=== PATIENT | female | born 1945 | race Caucasian/White ===

== ENCOUNTER 2017-10-26 13:28 | Observation (INO) | payer MEDICARE, MEDICAID ==
[2017-10-23 12:50] LABS: BASOPHILS % (AUTO) 0.5 % (0-1); EOSINOPHILS # (AUTO) 0.1 X10'3 (0-0.9); EOSINOPHILS % (AUTO) 2.3 % (0-6); HEMATOCRIT 32.7 % (35.0-45.0); HEMOGLOBIN 10.6 g/dl (12.0-16.0); LYMPHOCYTES % (AUTO) 23.2 % (21-51); MEAN CORPUSCULAR HEMOGLOBIN 30.4 PG (27.0-31.0); MEAN CORPUSCULAR HGB CONC 32.3 % (33.0-36.5); MEAN CORPUSCULAR VOLUME 94.1 FL (78-98); MEAN PLATELET VOLUME 8.1 FL (7.4-10.4); MONOCYTES # (AUTO) 0.6 X10'3 (0-0.9); MONOCYTES % (AUTO) 13.6 % (2-12); NEUTROPHILS # (AUTO) 2.5 X10'3 (1.8-7.7); NEUTROPHILS % (AUTO) 60.4 % (42-75); PLATELET COUNT 201 X10'3 (140-440); RED BLOOD COUNT 3.48 X10'6 (4.20-5.60); RED CELL DISTRIBUTION WIDTH 26.3 % (11.5-14.5); WHITE BLOOD COUNT 4.1 X10'3 (4.5-11.0)
[2017-10-23 13:00] LABS: INR 1.2 INR; PARTIAL THROMBOPLASTIN TIME 32 SECONDS (22-32); PROTHROMBIN TIME 12.2 SECONDS (9.0-12.0)
[2017-10-23 13:03] LABS: ALBUMIN 2.7 G/DL (3.4-5.0); ANION GAP 5 (8-16); BLOOD UREA NITROGEN 22 MG/DL (7-18); BUN/CREATININE RATIO 7.1 (6.6-38.0); CALCIUM 8.5 MG/DL (8.5-10.1); CHLORIDE 101 MMOL/L (99-107); CREATININE 3.09 MG/DL (0.40-0.90); GLUCOSE 113 MG/DL (70-104); POTASSIUM 4.3 MMOL/L (3.5-5.1); SODIUM 138 MMOL/L (135-145); TOTAL CARBON DIOXIDE 31.7 MMOL/L (24-32); eGFR 15 ML/MIN
[2017-10-26] VITALS (9 sets, daily range): BP systolic 120–155; BP diastolic 84–100
[~2017-10-26] VITALS: Ht 167.6 cm; Wt 56.2 kg
[~2017-10-26 13:28] MED LIST: AMIO200T40 PO; ASPI-1265 PO; ATOR40TA PO; BENA10TA74 PO; CARV-50 PO; CLOP75TA35 PO; DIGO125T PO; FLO44IN; HYDR1TAB PO; ISOS30TA9 PO; LEVO100T46 PO; LEVO50TA67 PO; LORA-512 PO; NITR0.4T51 SL; NOR5T PO
[2017-10-26] MEDS ORDERED: diphenhydrAMINE 25mg capsule PO PRN (13:45)
[2017-10-26] MEDS ORDERED: LORazepam 0.5 MG tablet PO PRN (13:45)
[2017-10-26] MEDS: normal saline 1000ml 1,000 ML IV SCH ×2 (14:27→18:39)
[2017-10-26] MEDS ORDERED: IPRA3AMP9 IH (14:53)
[2017-10-26] MEDS ORDERED: CALC667T5 PO (14:53)
[2017-10-26] MEDS ORDERED: TIOT18CA3 PO (14:53)
[2017-10-26] MEDS ORDERED: SEVE800T8 PO (14:53)
[2017-10-26] MEDS ORDERED: RANO500T3 PO (14:53)
[2017-10-26] MEDS ORDERED: FURO-150 PO (14:53)
[2017-10-26] MEDS ORDERED: HYDR-3965 PO (14:53)
[2017-10-26] MEDS ORDERED: LORA1TAB PO (14:53)
[2017-10-26] MEDS ORDERED: APIX2.5T PO (14:53)
[2017-10-26] MEDS ORDERED: iohexol 350MG/ML 100ml bottle IV ONE ×2 (16:43→17:34)
[2017-10-26] MEDS ORDERED: heparin 1,000unit/ml 10ml vial 10 ML ONE (16:43)
[2017-10-26] MEDS ORDERED: LIDOcaine 1% w/EPI 1:100,000 30ml vial (MDV) ONE (16:43)
[2017-10-26] MEDS ORDERED: fentaNYL/PF 50MCG/1 ML 2ML syringe ONE (17:07)
[2017-10-26] MEDS ORDERED: proCHLORperazine 10 MG/2 ml inj IV PRN (18:15)
[2017-10-26] MEDS ORDERED: ondansetron/PF 4mg/2ml inj IV PRN (18:15)
[2017-10-26] MEDS ORDERED: HYDROcodone/acetaminophen 10/325mg tab PO PRN (18:15)
[2017-10-26] MEDS ORDERED: OXAZEpam 15mg capsule PO PRN (18:15)
[2017-10-26] MEDS: HYDROcodone/acetaminophen 5mg/325mg tablet PO PRN (18:37)
[2017-10-26] MEDS ORDERED: LORazepam 1 MG tablet PO PRN (19:30)
[2017-10-26] MEDS ORDERED: nitroGLYCERIN 0.4mg SUBLingual tab SL PRN (19:30)
[2017-10-26] MEDS ORDERED: levoTHYROXINE 25mcg tablet PO SCH (19:30)
[2017-10-26] MEDS: ipratropium 0.5 MG/2.5ML nebule IH SCH (20:42)
[2017-10-26] MEDS ORDERED: HYDROcodone/acetaminophen 5mg/325mg tablet PO SCH (21:00)
[2017-10-26] MEDS: carvedilol 6.25mg tablet PO SCH (21:05)
[2017-10-26] MEDS: ranolazine 500mg SR tablet (Q12H) PO SCH (21:05)
[2017-10-26] MEDS: furosemide 20MG tablet PO SCH (21:05)
[2017-10-26] MEDS: atorvastatin 20mg tablet PO SCH (21:05)
[2017-10-27] MEDS ORDERED: CALCIUM ACETATE PO SCH
[2017-10-27] MEDS: ipratropium 0.5 MG/2.5ML nebule IH SCH ×4 (02:47→20:08)
[2017-10-27 03:00] VITALS: BP 147/99
[2017-10-27] MEDS: normal saline 1000ml 1,000 ML IV SCH (05:14)
[2017-10-27 06:00] VITALS: BP 148/103
[2017-10-27] MEDS ORDERED: furosemide 10 MG/1 ML 10ml inj IV ONE (07:20)
[2017-10-27] MEDS: sevelamer carbonate 800mg tablet PO SCH ×3 (07:30→17:30)
[2017-10-27] MEDS: amLODIPine 5mg tablet PO SCH (07:36)
[2017-10-27] MEDS: carvedilol 6.25mg tablet PO SCH ×2 (07:36→20:19)
[2017-10-27] MEDS: isosorbide mononitrate 30mg tab.SR.24H PO SCH (07:36)
[2017-10-27] MEDS: apixaban 2.5mg tablet PO SCH ×2 (07:36→20:18)
[2017-10-27] MEDS: ranolazine 500mg SR tablet (Q12H) PO SCH ×2 (07:36→20:18)
[2017-10-27] MEDS: aspirin 81mg tab.chew PO SCH (07:36)
[2017-10-27] MEDS: HYDROcodone/acetaminophen 5mg/325mg tablet PO PRN ×3 (07:46→16:51)
[2017-10-27] MEDS: furosemide 20MG tablet PO SCH ×2 (08:00→20:19)
[2017-10-27] MEDS ORDERED: normal saline 1000ml 250 ML IV PRN (09:30)
[2017-10-27] MEDS ORDERED: heparin 1,000unit/ml 10ml vial 10 ML IV ONE ×2 (09:30→13:17)
[2017-10-27] MEDS ORDERED: epoetin 20,000 units/ml inj IV ONE (09:30)
[2017-10-27] MEDS ORDERED: heparin 1,000 units/ml 10ml inj HE ONE ×4 (09:35→13:25)
[2017-10-27 11:00] VITALS: BP 121/78
[2017-10-27 11:09] LABS: ALBUMIN 2.7 G/DL (3.4-5.0); ANION GAP 9 (8-16); BLOOD UREA NITROGEN 41 MG/DL (7-18); BUN/CREATININE RATIO 9.5 (6.6-38.0); CALCIUM 8.5 MG/DL (8.5-10.1); CHLORIDE 99 MMOL/L (99-107); CREATININE 4.33 MG/DL (0.40-0.90); GLUCOSE 135 MG/DL (70-104); POTASSIUM 5.1 MMOL/L (3.5-5.1); SODIUM 135 MMOL/L (135-145); TOTAL CARBON DIOXIDE 26.6 MMOL/L (24-32); eGFR 10 ML/MIN
[2017-10-27 15:00] VITALS: BP 106/70
[2017-10-27 19:00] VITALS: BP 106/69
[2017-10-27] MEDS: atorvastatin 20mg tablet PO SCH (20:19)
[2017-10-27 23:00] VITALS: BP 124/71
[2017-10-28] MEDS: ipratropium 0.5 MG/2.5ML nebule IH SCH ×2 (02:00→08:04)
[2017-10-28 03:00] VITALS: BP 117/73
[2017-10-28 06:49] VITALS: BP 135/81
[2017-10-28] MEDS ORDERED: furosemide 40mg/4ml inj IV ONE (06:50)
[2017-10-28 07:02] LABS: BASOPHILS % (AUTO) 0.1 % (0-1); EOSINOPHILS % (AUTO) 0.1 % (0-6); HEMATOCRIT 34.3 % (35.0-45.0); HEMOGLOBIN 11.1 g/dl (12.0-16.0); LYMPHOCYTES # (AUTO) 0.8 X10'3 (1.1-4.8); LYMPHOCYTES % (AUTO) 6.5 % (21-51); MEAN CORPUSCULAR HEMOGLOBIN 30.8 PG (27.0-31.0); MEAN CORPUSCULAR HGB CONC 32.5 % (33.0-36.5); MEAN CORPUSCULAR VOLUME 94.9 FL (78-98); MEAN PLATELET VOLUME 8.6 FL (7.4-10.4); NEUTROPHILS # (AUTO) 10.5 X10'3 (1.8-7.7); NEUTROPHILS % (AUTO) 85.3 % (42-75); PLATELET COUNT 130 X10'3 (140-440); RED BLOOD COUNT 3.61 X10'6 (4.20-5.60); RED CELL DISTRIBUTION WIDTH 26.1 % (11.5-14.5); WHITE BLOOD COUNT 12.3 X10'3 (4.5-11.0)
[2017-10-28 07:11] LABS: ALBUMIN 2.5 G/DL (3.4-5.0); ANION GAP 6 (8-16); BLOOD UREA NITROGEN 27 MG/DL (7-18); BUN/CREATININE RATIO 7.8 (6.6-38.0); CALCIUM 8.6 MG/DL (8.5-10.1); CHLORIDE 99 MMOL/L (99-107); CREATININE 3.45 MG/DL (0.40-0.90); GLUCOSE 112 MG/DL (70-104); POTASSIUM 4.9 MMOL/L (3.5-5.1); SODIUM 133 MMOL/L (135-145); TOTAL CARBON DIOXIDE 27.7 MMOL/L (24-32); eGFR 13 ML/MIN
[2017-10-28] MEDS: apixaban 2.5mg tablet PO SCH (07:22)
[2017-10-28] MEDS: amLODIPine 5mg tablet PO SCH (07:22)
[2017-10-28] MEDS: ranolazine 500mg SR tablet (Q12H) PO SCH (07:22)
[2017-10-28] MEDS: aspirin 81mg tab.chew PO SCH (07:22)
[2017-10-28] MEDS: sevelamer carbonate 800mg tablet PO SCH ×2 (07:22→12:28)
[2017-10-28] MEDS: isosorbide mononitrate 30mg tab.SR.24H PO SCH (07:22)
[2017-10-28 07:23] LABS: ANISOCYTOSIS 3+; PLATELET ESTIMATE DECREASED
[2017-10-28] MEDS: HYDROcodone/acetaminophen 5mg/325mg tablet PO PRN (07:23)
[2017-10-28 07:24] LABS: ACANTHOCYTES FEW; BURR CELLS FEW; ELLIPTOCYTES FEW; SCHISTOCYTES FEW
[2017-10-28] MEDS: furosemide 20MG tablet PO SCH (07:41)
[2017-10-28] MEDS ORDERED: levoTHYROXINE 100mcg tablet PO SCH (08:00)
[2017-10-28] MEDS ORDERED: carVEDilol 12.5mg tablet PO SCH (08:00)
[2017-10-28] MEDS ORDERED: CARV-50 PO (09:52)
[2017-10-28 11:00] VITALS: BP 122/92
== END 2017-10-28 14:00 | disposition home or self-care (01) ==
LOC: SSTAY O 13:28 → PCU 3S 15:00
PROVIDERS: ADMIT Internal Medicine Interventional Cardiology; ATTEND Internal Medicine Interventional Cardiology
DX: I25.118 Atherosclerotic heart disease of native coronary artery with other forms of angina pectoris (principal); I70.213 Atherosclerosis of native arteries of extremities with intermittent claudication, bilateral legs; I65.23 Occlusion and stenosis of bilateral carotid arteries; I48.91 Unspecified atrial fibrillation; I48.92 Unspecified atrial flutter; I95.9 Hypotension, unspecified; I70.1 Atherosclerosis of renal artery; E03.9 Hypothyroidism, unspecified; I71.4 Abdominal aortic aneurysm, without rupture; I49.5 Sick sinus syndrome; I12.9 Hypertensive chronic kidney disease with stage 1 through stage 4 chronic kidney disease, or unspecified chronic kidney disease; N18.3 Chronic kidney disease, stage 3 (moderate); E78.5 Hyperlipidemia, unspecified; F41.9 Anxiety disorder, unspecified; Z72.0 Tobacco use; Z79.01 Long term (current) use of anticoagulants; Z79.82 Long term (current) use of aspirin; Z79.899 Other long term (current) drug therapy; Z95.1 Presence of aortocoronary bypass graft; Z95.5 Presence of coronary angioplasty implant and graft; Z86.73 Personal history of transient ischemic attack (TIA), and cerebral infarction without residual deficits; Z95.0 Presence of cardiac pacemaker
CPT/HCPCS: 36245; 36415; 80048; 85025; 85610; 85730; 87070; 93005; 93459; 94640; 94760; 96365; 96366; 96375; 96376; A6257; C1769; G0378; J0885; J1644; J1940; J2405; J3010; J3490; J7030; Q0163; Q9967; 99152; 99153; A4620; G0257

== ENCOUNTER 2018-03-15 09:34 | Emergency (ER) | payer MEDICARE, MEDICAID ==
[~2018-03-15] VITALS: Ht 167.6 cm; Wt 52.0 kg
[~2018-03-15 09:34] MED LIST changes: -AMIO200T40 PO; +APIX2.5T PO; -BENA10TA74 PO; +CALC667T5 PO; -CLOP75TA35 PO; -DIGO125T PO; -FLO44IN; +FURO-150 PO; +HYDR-3965 PO; -HYDR1TAB PO; +IPRA3AMP9 IH; -LORA-512 PO; +LORA1TAB PO; +RANO500T3 PO; +SEVE800T8 PO; +TIOT18CA3 PO
[2018-03-15 10:24] LABS: BASOPHILS # (AUTO) 0.1 X10'3 (0-0.2); BASOPHILS % (AUTO) 0.9 % (0-1); EOSINOPHILS % (AUTO) 0.3 % (0-6); HEMOGLOBIN 12.7 g/dl (12.0-16.0); LYMPHOCYTES # (AUTO) 0.8 X10'3 (1.1-4.8); LYMPHOCYTES % (AUTO) 13.6 % (21-51); MEAN CORPUSCULAR HEMOGLOBIN 33.5 PG (27.0-31.0); MEAN CORPUSCULAR HGB CONC 32.7 % (33.0-36.5); MEAN CORPUSCULAR VOLUME 102.5 FL (78-98); MEAN PLATELET VOLUME 10.1 FL (7.4-10.4); MONOCYTES # (AUTO) 0.4 X10'3 (0-0.9); MONOCYTES % (AUTO) 6.5 % (2-12); NEUTROPHILS # (AUTO) 4.6 X10'3 (1.8-7.7); NEUTROPHILS % (AUTO) 78.7 % (42-75); PLATELET COUNT 125 X10'3 (140-440); RED BLOOD COUNT 3.81 X10'6 (4.20-5.60); RED CELL DISTRIBUTION WIDTH 20.7 % (11.5-14.5); WHITE BLOOD COUNT 5.9 X10'3 (4.5-11.0)
[2018-03-15 10:37] LABS: INR 1.4 INR; PARTIAL THROMBOPLASTIN TIME 61 SECONDS (22-32); PROTHROMBIN TIME 14.4 SECONDS (9.0-12.0)
[2018-03-15 10:39] LABS: ALANINE AMINOTRANSFERASE 89 U/L (12-78); ALBUMIN 3.5 G/DL (3.4-5.0); ALBUMIN/GLOBULIN RATIO 0.7 (1.1-1.5); ALKALINE PHOSPHATASE 128 IU/L (46-116); ANION GAP 10 (8-16); ASPARTATE AMINO TRANSFERASE 89 U/L (10-37); BILIRUBIN,TOTAL 1.5 MG/DL (0.1-1.0); BLOOD UREA NITROGEN 30 MG/DL (7-18); CALCIUM 8.6 MG/DL (8.5-10.1); CHLORIDE 98 MMOL/L (99-107); CREATININE 3.01 MG/DL (0.40-0.90); GLUCOSE 79 MG/DL (70-104); SODIUM 137 MMOL/L (135-145); TOTAL CARBON DIOXIDE 28.9 MMOL/L (24-32); TOTAL PROTEIN 8.2 G/DL (6.4-8.2); eGFR 15 ML/MIN
[2018-03-15 10:42] LABS: POTASSIUM 4.4 MMOL/L (3.5-5.1)
[2018-03-15 11:06] LABS: NUCLEATED RED BLOOD CELLS 1 /100WBC (0-0); TOTAL CELLS COUNTED 100
[2018-03-15 11:07] LABS: ANISOCYTOSIS 3+; PLATELET ESTIMATE DECREASED; POIKILOCYTOSIS 1+; POLYCHROMASIA FEW
[2018-03-15 13:48] VITALS: BP 139/98
== END 2018-03-15 15:28 | disposition home or self-care (01) ==
LOC: ER 09:34
DX: R06.00 Dyspnea, unspecified (principal); I48.91 Unspecified atrial fibrillation; I13.0 Hypertensive heart and chronic kidney disease with heart failure and stage 1 through stage 4 chronic kidney disease, or unspecified chronic kidney disease; N18.9 Chronic kidney disease, unspecified; I50.9 Heart failure, unspecified; Z99.2 Dependence on renal dialysis; I25.10 Atherosclerotic heart disease of native coronary artery without angina pectoris; I25.2 Old myocardial infarction; J44.9 Chronic obstructive pulmonary disease, unspecified; F17.200 Nicotine dependence, unspecified, uncomplicated; Z86.73 Personal history of transient ischemic attack (TIA), and cerebral infarction without residual deficits; Z79.899 Other long term (current) drug therapy; Z79.82 Long term (current) use of aspirin
CPT/HCPCS: 36415; 71045; 80053; 83880; 84484; 85025; 85610; 85730; 93005; 99285